=== PATIENT | female | born 1950 | race Caucasian/White ===

== ENCOUNTER → 2019-03-02 | Outpatient (CLI) | payer OTHER, MEDICARE, MEDICAID | LOC: COL.VAS 10:55 | DX: Z01.810 Encounter for preprocedural cardiovascular examination (principal); I51.7 Cardiomegaly; Z95.2 Presence of prosthetic heart valve ==

== ENCOUNTER 2019-04-21 07:54 | Day surgery (SDC) | payer OTHER, MEDICARE ==
[2019-04-21] VITALS (15 sets, daily range): BP systolic 114–131; BP diastolic 57–78; PULSE 73–96; TEMP 97.6
[~2019-04-21] VITALS: Ht 170.2 cm; Wt 116.0 kg
[2019-04-21 08:44] LABS: HEMATOCRIT 38.7 % (37.0-47.0); HEMOGLOBIN 12.2 g/dl (12.5-16.0); MEAN CELL VOLUME 88 fl (80.0-100.0); MEAN CORPUSCULAR HEMOGLOBIN 28 pg (27.0-31.0); MEAN CORPUSCULAR HGB CONC 32 g/dl (33.0-37.0); MEAN PLATELET VOLUME 10.3 fl (7.4-10.4); PLATELET COUNT 382 K/mm3 (130-400); RED BLOOD COUNT 4.39 M/mm3 (4.10-5.30); REDCELL DISTRIBUTION WIDTH-CV 14.5 % (11.5-14.5)
[2019-04-21 08:48] LABS: PROTHROMBIN TIME 11.2 SECONDS (9.7-12.8)
[2019-04-21] MEDS ORDERED: ASPIRIN E.C. 8181 MG PO (08:48)
[2019-04-21] MEDS ORDERED: ALBUTEROL0.83 MG/ML IH (08:48)
[2019-04-21] MEDS ORDERED: PROAIR HFA0.09 MG/AC IH (08:48)
[2019-04-21 08:58] LABS: CALCIUM 9.4 mg/dL (8.4-10.2); CREATININE, serum 0.68 (0.52-1.25); POTASSIUM 3.9 mmol/L (3.4-5.0)
[2019-04-21] MEDS ORDERED: FLEXERIL 1010 MG/TAB PO (09:50)
[2019-04-21] MEDS ORDERED: NORCO 325 MG-101 TAB PO (09:53)
[2019-04-21] MEDS ORDERED: LASIX 40MG TABL40 MG PO (09:53)
[2019-04-21] MEDS ORDERED: NOVOLOG 100U100 U/M1 SQ (09:55)
[2019-04-21] MEDS ORDERED: LANTUS SOLOS100 U/ML SQ (09:55)
[2019-04-21] MEDS ORDERED: LEVOXYL0.075 MG PO (09:56)
[2019-04-21] MEDS ORDERED: PRINIVIL10 MG PO (09:56)
[2019-04-21] MEDS ORDERED: GLUCOPHAGE500 MG/TAB PO (09:57)
[2019-04-21] MEDS ORDERED: ATIVAN 0.50.5 MG/TAB PO (09:57)
[2019-04-21] MEDS ORDERED: LOPRESSOR 225 MG/TAB PO (09:58)
[2019-04-21] MEDS ORDERED: ZOCOR 20MG20 MG PO (09:58)
[2019-04-21] MEDS ORDERED: TIMOPTIC 0.5%-15 OU (10:01)
[2019-04-21] MEDS ORDERED: LUMIGAN 7.5 ML7.5 M1 OU (10:02)
--- NOTE | 2019-04-21 10:17 | NUR ---
SEE MERGE DOCUMENTATION FOR MEDICATION ADMINISTRATION TIMES AND INTRA/POST PROCEDURE SEDATION ASSESSMENTS.
[2019-04-21] MEDS ORDERED: ALDACTONE50 MG PO (11:34)
[2019-04-21] MEDS ORDERED: ZEBETA 5MG5 MG PO (11:34)
--- NOTE | 2019-04-21 11:50 | NUR ---
Pt returned to EU 12 per bed s/p heart cath. Pt resting well, family at bedside.
--- NOTE | 2019-04-21 12:00 | NUR ---
Report to Roxi RN s/p left and right heart catheterization. Pt connected to monitors and vital signs stable. Pt continues to utilize oxygen at 2L per NC as she does at home. Right femoral artery and vein sites stable. No active bleeding and sites soft, non tender to palpation. Distal pulses to right dp and pt +2. Dressing clean, dry and intact.
--- NOTE | 2019-04-21 14:50 | NUR ---
Pt resting in bed, granddaughter at bedside. Pt maximiliano PO intake s n/v. Pt voided x 2 per bedpan.
--- NOTE | 2019-04-21 14:50 | NUR ---
Pt repositioned to side for back pain.
--- NOTE | 2019-04-21 15:50 | NUR ---
Pt repositioned in bed for back pain.
--- NOTE | 2019-04-21 18:12 | NUR ---
Ambulated around nurses station and then to bathroom. C/o low back pain from laying flat. Right groin site remains CD&I. INT discontinued intact. Discharge instructions given by Roxi WILLOUGHBY.
--- NOTE | 2019-04-21 19:10 | NUR ---
Transferred to private car by ferny
== END 2019-04-21 19:11 | disposition home or self-care (01) ==
LOC: COL.CAR 07:54
PROVIDERS: Internal Medicine Cardiovascular Disease
DX: R06.02 Shortness of breath (principal); I27.20 Pulmonary hypertension, unspecified; I20.9 Angina pectoris, unspecified; I10 Essential (primary) hypertension; E78.2 Mixed hyperlipidemia; J45.909 Unspecified asthma, uncomplicated; F32.9 Major depressive disorder, single episode, unspecified; K21.9 Gastro-esophageal reflux disease without esophagitis; Z85.42 Personal history of malignant neoplasm of other parts of uterus; I48.91 Unspecified atrial fibrillation; E11.9 Type 2 diabetes mellitus without complications; Z79.4 Long term (current) use of insulin; Z95.2 Presence of prosthetic heart valve; Z79.899 Other long term (current) drug therapy; I34.0 Nonrheumatic mitral (valve) insufficiency; G47.33 Obstructive sleep apnea (adult) (pediatric); Z79.82 Long term (current) use of aspirin
CPT/HCPCS: J0153; J1644; J2405; J3010; Q9967

== ENCOUNTER 2023-02-18 06:05 | Day surgery (SDC) | payer MEDICARE, MEDICAID ==
[~2023-02-18] VITALS: Ht 170.2 cm; Wt 110.4 kg
[~2023-02-18 06:05] MED LIST: ALBUTEROL0.83 MG/ML IH; ALDACTONE50 MG PO; ASPIRIN E.C. 8181 MG PO; ATIVAN 0.50.5 MG/TAB PO; FLEXERIL 1010 MG/TAB PO; GLUCOPHAGE500 MG/TAB PO; LANTUS SOLOS100 U/ML SQ; LASIX 40MG TABL40 MG PO; LEVOXYL0.075 MG PO; LOPRESSOR 225 MG/TAB PO; LUMIGAN 7.5 ML7.5 M1 OU; NORCO 325 MG-101 TAB PO; NOVOLOG 100U100 U/M1 SQ; PRINIVIL10 MG PO; PROAIR HFA0.09 MG/AC IH; TIMOPTIC 0.5%-15 OU; ZEBETA 5MG5 MG PO; ZOCOR 20MG20 MG PO
[2023-02-18] MEDS ORDERED: DULCOLAX STOOL100 MG PO (09:29)
[2023-02-18] MEDS ORDERED: ELIQUIS 5MG PO (09:29)
[2023-02-18] MEDS ORDERED: JARDIANCE25 PO (09:30)
[2023-02-18] MEDS ORDERED: ZITHROMAX 250M250 MG PO (09:30)
[2023-02-18] MEDS ORDERED: DITROPAN 5MG TAB5 MG PO (09:31)
[2023-02-18] MEDS ORDERED: NEURONTIN100 MG/CAP PO (09:31)
[2023-02-18] MEDS ORDERED: PROTONIX 40MG T40 MG PO (09:31)
[2023-02-18] MEDS ORDERED: LEXAPRO 10MG10 MG PO (09:31)
[2023-02-18] MEDS ORDERED: TRESIBA FL100 UNIT/1 SQ (09:32)
[2023-02-18] MEDS ORDERED: TRELEGY ELLIPT1 EACH IH (09:32)
[2023-02-18 10:10] VITALS: BP 117/69; PULSE 75; TEMP 97.1
--- NOTE | 2023-02-18 10:10 | NUR ---
1010 PATIENT RETURNS TO ROOM 2 VIA CART. PATIENT IS DROWSY BUT ALERTS TO VERBAL STIMULI. RESPIRATIONS EVEN AND UNLABORED. ON 1LPM VIA NC. PATIENT SON IS IN ROOM. PATIENT HAS 4 LAP SITES TO LEFT UPPER ARM, ALL COVERED WITH 4X4 AND TEGADERM, ALL CDI. SLING IS PRESENT TO LUE. PATIENT IS REQUESTING A SPRITE ZERO AND CRACKERS. NO DIFFICULTIES SWALLOWING. 1050 PATIENT STATES THAT SHE IS HAVING SOME PAIN TO HER LEFT ARM, RATING IT A 7/10. THIS NURSE GAVE A PO PRN PAIN PILL PER MD ORDERS. 1110 PATIENT STATES THAT HER PAIN IS AT A MORE TOLERABLE LEVEL. 2/10. 1120 THIS NURSE DISCONTINUED IV FROM RIGHT HAND WITH NO DIFFICULTIES. 1125 THIS NURSE REVIEWED DISCHARGE INSTRUCTIONS WITH PATIENT. PATIENT VERBALIZED UNDERSTANDING. 1130 THIS NURSE ASSISTED PATIENT IN GETTING DRESSED AND IN THE WHEELCHAIR. 1140 PATIENT DISCHARGES FROM UNIT IN STABLE CONDITION VIA WHEELCHAIR. PATIENT SON IS DRIVING PATIENT HOME.
[2023-02-18 10:25] VITALS: BP 113/64; PULSE 77
[2023-02-18 10:40] VITALS: BP 115/66; PULSE 74
[2023-02-18 11:00] VITALS: BP 107/56; PULSE 69
[2023-02-18 13:23] VITALS: BP 117/69; PULSE 76; TEMP 96.9
== END 2023-02-18 11:40 | disposition home or self-care (01) ==
LOC: SDCO 06:05
DX: S43.432A Superior glenoid labrum lesion of left shoulder, initial encounter (principal); G47.33 Obstructive sleep apnea (adult) (pediatric); M94.8X1 Other specified disorders of cartilage, shoulder
CPT/HCPCS: A4619; C1713; J0171; J0690; J1100; J2250; J2405; J2704; J2795; J3010; J7120

== ENCOUNTER → 2023-12-04 | Outpatient (CLI) | payer MEDICARE, MEDICAID ==
[~2023-12-04] MED LIST changes: +DITROPAN 5MG TAB5 MG PO; +DULCOLAX STOOL100 MG PO; +ELIQUIS 5MG PO; +JARDIANCE25 PO; +LEXAPRO 10MG10 MG PO; +NEURONTIN100 MG/CAP PO; +PROTONIX 40MG T40 MG PO; +TRELEGY ELLIPT1 EACH IH; +TRESIBA FL100 UNIT/1 SQ; +ZITHROMAX 250M250 MG PO
== END ==
LOC: MC.RAD 09:59
DX: R92.8 Other abnormal and inconclusive findings on diagnostic imaging of breast (principal)